=== PATIENT | male | born 1945 | race African-American/Black ===

== ENCOUNTER 2018-04-19 10:47 | Inpatient (IN) | payer OTHER ==
--- OUTSIDE RECORDS SUMMARY | 2018-04-19 10:49 | XMS REPORT | Clinical Summary ---
:1945 Author Organization [facility] Address [address] [place] [address] Care Team Providers Name Role Phone Evon Primary Care Provider Allergies No Known Allergies Medications Medication Sig Dispensed Refills Start Date End Date Status lisinopril Take 5 mg by 0 Active (PRINIVIL,ZESTRIL) 5 MG mouth nightly. tabletIndications: hypertension QUEtiapine (SEROQUEL) 100 Take 100 mg by 0 Active MG tabletIndications: mouth nightly. PTSD ferrous gluconate Take 324 mg by 0 Active (FERGON) 324 MG mouth daily tabletIndications: Iron with breakfast. Deficiency Anemia atorvastatin (LIPITOR) 20 Take 20 mg by 0 Active MG tabletIndications: mouth nightly. hyperlipidemia dorzolamide-timolol Place 1 drop 0 Active (COSOPT) 22.3-6.8 mg/mL into the left ophthalmic eye 2 (two) solutionIndications: open times daily. angle glaucoma latanoprost (XALATAN) 1 drop nightly. 0 Active 0.005 % ophthalmic solutionIndications: open angle glaucoma allopurinol (ZYLOPRIM) Take 100 mg by 0 Active 100 MG tabletIndications: mouth daily. Gout sertraline (ZOLOFT) 100 Take 100 mg by 0 Active MG tabletIndications: mouth daily. major depressive disorder Active Problems Problem Noted Date Cerebrovascular accident (CVA) 10/04/2016 Vitamin B12 deficiency 10/04/2016 Transient cerebral ischemia, unspecified type 10/04/2016 Social History Tobacco Use Types Packs/Day Years Used Date Former Smoker Cigarettes 0.15 50 10/19/1966 - 03/19/2016 Smokeless Tobacco: Never Used Tobacco Cessation: Counseling Given: No Alcohol Use Drinks/Week oz/Week Comments Yes 2 Cans of beer 1.2 Not every day Sex Assigned at Date Recorded Not on file Job Start Date Occupation Industry Not on file Not on file Not on file Travel History Travel Start Travel End No recent travel history available. Last Filed Vital Signs Not on file Plan of Treatment Not on file Results Not on fileafter 04/18/2017 Insurance Payer Benefit Plan / Subscriber ID Type Phone Address Group AETNA - AETNA MEDICARE xxxxxxxx [facility] Contracted [phone] [address] MEDICARE MGD HMO POS [id number] [place] [address] Advance Directives For more information, please contact:[address] [phone] Code Status Date Activated Date Inactivated Comments Full Code 10/03/2016 12:41 AM 10/05/2016 8:30 PM This code status was determined by: Patient
--- OUTSIDE RECORDS SUMMARY | 2018-04-19 10:49 | XMS REPORT ---
:1945 Author Organization [facility] Address [address] [place] [address] Care Team Providers Name Role Phone PALOMOCELINE Bonds Unavailable Unavailable Problems This patient has no known problems. Allergies, Adverse Reactions, Alerts This patient has no known allergies or adverse reactions. Medications This patient has no known medications. Results Test Description Test Time Test Comments Text Results Atomic Results Result Comments FERRITIN 2016-10-05 07:10:00 Test Item Value Reference Range Comments FERRITIN (BEAKER) (test kizo=192) 17 ng/mL 5-275 Effective 04/07/2014: Reference Range ChangeNew: Male 5-275 Previous: Male 22-322 Female 5-275 Female 10-291IRON, TIBC, % SAT. ( WITHOUT FERRITIN)2016-10-05 06:57:00 Test Item Value Reference Range Comments IRON (BEAKER) (test kfjk=820) 51 ug/dL 40-160 TOTAL IRON BINDING CAPACITY (BEAKER) (test 321 ug/dL 250-450 iwwy=510) IRON % SATURATION (2) (BEAKER) (test ykvu=9489) 16 % 20-55 CBC W/PLT COUNT & AUTO [id number] 07:29:00 Test Item Value Reference Range Comments WHITE BLOOD CELL COUNT (BEAKER) (test esye=201) 4.5 K/ L 4.0-10.0 RED BLOOD CELL COUNT (BEAKER) (test qxpc=610) 4.70 M/ L 4.20-5.80 HEMOGLOBIN (BEAKER) (test sfwb=641) 8.7 GM/DL 13.0-16.8 HEMATOCRIT (BEAKER) (test ujzf=777) 30.4 % 40.0-50.0 MEAN CORPUSCULAR VOLUME (BEAKER) (test mjom=067) 64.7 fL 82.0-98.0 MEAN CORPUSCULAR HEMOGLOBIN (BEAKER) (test 18.6 pg 27.0-33.0 uuns=483) MEAN CORPUSCULAR HEMOGLOBIN CONC (BEAKER) (test 28.7 GM/DL 32.0-36.0 jzbi=218) RED CELL DISTRIBUTION WIDTH (BEAKER) (test 20.7 % 10.3-14.2 sgzq=483) PLATELET COUNT (BEAKER) (test hxsz=309) 224 K/CU MM 150-430 MEAN PLATELET VOLUME (BEAKER) (test lyaa=817) 5.4 fL 6.5-10.5 NUCLEATED RED BLOOD CELLS (BEAKER) (test 0 /100 WBC 0-0 tete=130) NEUTROPHILS RELATIVE PERCENT (BEAKER) (test 50 % nyhw=223) LYMPHOCYTES RELATIVE PERCENT (BEAKER) (test 36 % vphe=072) MONOCYTES RELATIVE PERCENT (BEAKER) (test 10 % hguf=000) EOSINOPHILS RELATIVE PERCENT (BEAKER) (test 4 % wzwz=555) BASOPHILS RELATIVE PERCENT (BEAKER) (test 1 % kyta=472) NEUTROPHILS ABSOLUTE COUNT (BEAKER) (test 2.26 K/ L 1.80-8.00 ijfz=636) LYMPHOCYTES ABSOLUTE COUNT (BEAKER) (test 1.62 K/ L 1.48-4.50 ddab=284) MONOCYTES ABSOLUTE COUNT (BEAKER) (test 0.44 K/ L 0.00-1.30 fnvc=169) EOSINOPHILS ABSOLUTE COUNT (BEAKER) (test 0.17 K/ L 0.00-0.50 gpcf=354) BASOPHILS ABSOLUTE COUNT (BEAKER) (test 0.05 K/ L 0.00-0.20 oqey=854) 0.00[facility] METABOLIC [id number] 06:45:00 Test Item Value Reference Range Comments SODIUM (BEAKER) (test 139 meq/L 136-145 mezt=068) POTASSIUM (BEAKER) (test 3.9 meq/L 3.5-5.1 lcsn=697) CHLORIDE (BEAKER) (test 112 meq/L 98-107 hwep=774) CO2 (BEAKER) (test 20 meq/L 22-29 wpfm=560) BLOOD UREA NITROGEN 19 mg/dL 7-21 (BEAKER) (test olzf=034) CREATININE (BEAKER) (test 1.17 mg/dL 0.57-1.25 rytq=615) GLUCOSE RANDOM (BEAKER) 88 mg/dL 70-105 (test wean=445) CALCIUM (BEAKER) (test 8.7 mg/dL 8.4-10.2 miex=109) EGFR (BEAKER) (test 75 mL/min/1.73 sq m ESTIMATED GFR IS NOT mhhm=8753) ACCURATE CREATININE CLEARANCE IN PREDICTING GLOMERULAR FILTRATION RATE. ESTIMATED GFR IS NOT APPLICABLE FOR DIALYSIS PATIENTS. [id number] 13:05:00 Test Item Value Reference Range Comments RPR SCREEN (BEAKER) (test mred=082) Nonreactive Nonreactive HEMOGLOBIN [id number] 08:09:00 Test Item Value Reference Range Comments HEMOGLOBIN A1C (BEAKER) (test xmrj=347) 5.6 % 4.3-6.1 FastingSEDIMENTATION [id number] 06:42:00 Test Item Value Reference Range Comments SEDIMENTATION RATE, ERYTHROCYTE (BEAKER) (test 19 mm/HR 0-40 yywr=532) FOLATE, [id number] 04:58:00 Test Item Value Reference Range Comments FOLATE (BEAKER) (test inal=060) 12.3 ng/mL >=7.0 Effective 04/07/2014: Folate Reference Range ChangeNew: >=7.0 Previous: & gt;=5.4VITAMIN [id number] 03:55:00 Test Item Value Reference Range Comments VITAMIN B12 (BEAKER) (test pjqr=255) 250 pg/mL 213-816 TSH/FREE T4 IF [id number] 03:55:00 Test Item Value Reference Range Comments THYROID STIMULATING HORMONE (BEAKER) (test 1.42 uIU/mL 0.35-4.94 rysx=827) LIPID [id number] 03:32:00 Test Item Value Reference Range Comments TRIGLYCERIDES (BEAKER) (test jimg=510) 73 mg/dL CHOLESTEROL (BEAKER) (test ejci=386) 197 mg/dL HDL CHOLESTEROL (BEAKER) (test xror=259) 40 mg/dL LDL CHOLESTEROL CALCULATED (BEAKER) (test 142 mg/dL gzef=292) Triglyceride Reference Range: Low Risk <150 Borderline 150- 199 High Risk 200-499 Very High Risk >=500Cholesterol Reference Range: Low Risk <200 Borderline 200-239 High Risk > 240HDL Cholesterol Reference Range: Low Risk >=60 High Risk <40LDL Cholesterol Reference Range: Optimal <100 Near Optimal 100-129 Borderline 130-159 High 160-189 Very High >=190 FastingBASIC METABOLIC [id number] 03:32:00 Test Item Value Reference Range Comments SODIUM (BEAKER) (test 139 meq/L 136-145 qrby=640) POTASSIUM (BEAKER) (test 4.2 meq/L 3.5-5.1 dnxg=027) CHLORIDE (BEAKER) (test 113 meq/L 98-107 oica=427) CO2 (BEAKER) (test 18 meq/L 22-29 idqo=346) BLOOD UREA NITROGEN 18 mg/dL 7-21 (BEAKER) (test trdf=352) CREATININE (BEAKER) (test 1.15 mg/dL 0.57-1.25 eiio=063) GLUCOSE RANDOM (BEAKER) 96 mg/dL 70-105 (test fupq=945) CALCIUM (BEAKER) (test 8.9 mg/dL 8.4-10.2 rkwa=530) EGFR (BEAKER) (test 76 mL/min/1.73 sq m ESTIMATED GFR IS NOT pldo=6800) ACCURATE CREATININE CLEARANCE IN PREDICTING GLOMERULAR FILTRATION RATE. ESTIMATED GFR IS NOT APPLICABLE FOR DIALYSIS PATIENTS. FastingCBC W/PLT COUNT & AUTO [id number] 03:19:00 Test Item Value Reference Range Comments WHITE BLOOD CELL COUNT (BEAKER) (test uepn=840) 4.9 K/ L 4.0-10.0 RED BLOOD CELL COUNT (BEAKER) (test enbd=854) 4.69 M/ L 4.20-5.80 HEMOGLOBIN (BEAKER) (test kixz=039) 8.9 GM/DL 13.0-16.8 HEMATOCRIT (BEAKER) (test miur=555) 30.4 % 40.0-50.0 MEAN CORPUSCULAR VOLUME (BEAKER) (test ampv=624) 64.9 fL 82.0-98.0 MEAN CORPUSCULAR HEMOGLOBIN (BEAKER) (test 19.0 pg 27.0-33.0 baqn=284) MEAN CORPUSCULAR HEMOGLOBIN CONC (BEAKER) (test 29.3 GM/DL 32.0-36.0 upet=762) RED CELL DISTRIBUTION WIDTH (BEAKER) (test 20.5 % 10.3-14.2 gaas=372) PLATELET COUNT (BEAKER) (test otcl=080) 223 K/CU MM 150-430 MEAN PLATELET VOLUME (BEAKER) (test pant=485) 5.5 fL 6.5-10.5 NUCLEATED RED BLOOD CELLS (BEAKER) (test 0 /100 WBC 0-0 johx=912) NEUTROPHILS RELATIVE PERCENT (BEAKER) (test 45 % rwmo=695) LYMPHOCYTES RELATIVE PERCENT (BEAKER) (test 41 % jhnc=869) MONOCYTES RELATIVE PERCENT (BEAKER) (test 11 % yyro=880) EOSINOPHILS RELATIVE PERCENT (BEAKER) (test 3 % fcqh=294) BASOPHILS RELATIVE PERCENT (BEAKER) (test 1 % dngb=259) NEUTROPHILS ABSOLUTE COUNT (BEAKER) (test 2.20 K/ L 1.80-8.00 ooqr=913) LYMPHOCYTES ABSOLUTE COUNT (BEAKER) (test 2.01 K/ L 1.48-4.50 kwxf=608) MONOCYTES ABSOLUTE COUNT (BEAKER) (test 0.54 K/ L 0.00-1.30 bjmq=054) EOSINOPHILS ABSOLUTE COUNT (BEAKER) (test 0.16 K/ L 0.00-0.50 eypi=931) BASOPHILS ABSOLUTE COUNT (BEAKER) (test 0.05 K/ L 0.00-0.20 afyi=000) 0.00
[2018-04-19] MEDS ORDERED: NA CHLORIDE 0.9% 500 ML ONE ×2 (11:24→14:59)
[2018-04-19 11:42] LABS: Absolute Lymphocytes (CBC) 1.9 K/uL (0.7-4.9); Absolute Monocytes 0.5 K/uL (0.1-1.3); Basophils % 0.9 % (0-1.3); Eosinophils % 2.9 % (0-4.4); Hematocrit 41.2 % (39.6-49.0); Lymphocytes % 28.1 % (15.3-44.8); MCH 23.6 pg (27.0-35.0); MCV 73.4 fL (80-100); MPV 10.1 fL (7.6-11.3); RBC Red Blood Cell Count 5.62 M/uL (4.33-5.43)
[2018-04-19 12:28] LABS: Protime INR 1.13
[2018-04-19 13:53] LABS: AST/SGOT 18 U/L (15-37); BUN Blood Urea Nitrogen 88 mg/dL (7-18); Bicarbonate 13 mmol/L (21-32); Glucose Level 91 mg/dL (74-106); Sodium Level 135 mmol/L (136-145)
[2018-04-19 13:54] LABS: ALT/SGPT 35 U/L (12-78); Albumin 4.1 g/dL (3.4-5.0); Alkaline Phosphatase 222 U/L (45-117); Bilirubin Direct 0.2 mg/dL (0-0.2); Bilirubin Total 0.4 mg/dL (0.2-1.0); Protein, Total 8.3 g/dL (6.4-8.2)
--- NOTE | 2018-04-19 13:54 | RAD REPORT ---
EXAM DESCRIPTION: Norma Single View04/19/2018 1:43 pm CLINICAL HISTORY: Chest pain COMPARISON: 2017 FINDINGS: The lungs appear clear of acute infiltrate. Calcified granulomas are present within the l ungs. Lungs are hyperaerated. The heart is normal size IMPRESSION: Hyperaerated lungs probably indicate COPD. No acute abnormality is displayed
[2018-04-19 14:03] LABS: Magnesium 2.1 mg/dL (1.8-2.4); NT PRO-BNP 132 pg/mL (<125); Troponin (Emerg Dept Use Only) < 0.20 ng/mL (0.0-0.045)
[2018-04-19 14:04] LABS: Potassium 6.5 mmol/L (3.5-5.1)
--- NOTE | 2018-04-19 14:14 | EKG ---
Test Date: 2018-04-19 Test Time: 10:52:49 Kitchen Clerk: KALE MEASUREMENT RESULTS: Intervals: Rate: 54 ID: [id number] QRSD: 92 QT: 408 QTc: 386 [place]: P: 24 ID: [id number] QRS: -29 T: 62 INTERPRETIVE STATEMENTS: Sinus bradycardia Otherwise normal ECG Compared to ECG 10/02/2016 18:40:35 Incomplete right bundle-branch block no longer present Left ventricular hypertrophy no longer present ST (T wave) deviation no longer present Electronically Signed On 04-19-18 14:13:35 TIGHTENING MACHINE OPERATOR by Enmanuel Heredia
[2018-04-19] MEDS ORDERED: INSULIN -REGULAR HUMAN 50 UNIT/0.5 ML ML ONE (14:58)
[2018-04-19] MEDS ORDERED: SOD BICARB 8.4% PEDI 10 mEq/10 mL SYR IVP ONE (14:58)
[2018-04-19] MEDS ORDERED: SOD POLYSTYREN SUL 15 GM/60 ML UCUP ONE (14:58)
[2018-04-19] MEDS ORDERED: ALBUTEROL 2.5 MG/3 ML NEB SOL ONE (14:58)
[2018-04-19] MEDS ORDERED: D50W 25 GM/50 ML SYRINGE IV ONE ×2 (14:58→16:39)
--- NOTE | 2018-04-19 14:58 | ER ---
Nurse's Notes [facility] Name: Barrie De Luna Age: 72 yrs Sex: Male : 1945 Arrival Date: 04/19/2018 Time: 11:04 Bed 4 Private MD: Diagnosis: Hypotension;Hyperkalemia;Syncope and collapse-near Presentation: 04/19 10:48 Presenting complaint: EMS [facility] and his SBP sv was 58. On EMS arrival SBP 62, placed in Trendelenburg and SBP 99. Denies CP, BS-58, multiple IV sticks attempted. Transition of care: patient was not received from another setting of care. Onset of symptoms was April 19, 2018. Risk Assessment: Do you want to hurt yourself or someone else? Patient reports no desire to harm self or others. Initial Sepsis Screen: Does the patient meet any 2 criteria? No. Patient's initial sepsis screen is negative. Does the patient have a suspected source of infection? No. Patient's initial sepsis screen is negative. Care prior to arrival: None. 10:48 Method Of Arrival: EMS: [facility] sv 10:48 Acuity: KOL[place] 2 sv Triage Assessment: 10:48 General: Appears in no apparent distress. uncomfortable, Behavior is calm, cooperative, sv appropriate for age. Pain: Denies pain. EENT: No signs and/or symptoms were reported regarding the EENT system. Neuro: Level of Consciousness is awake, alert, obeys commands, Oriented to person, place, time, situation, Moves all extremities. Full function Speech is normal. Neuro: Reports weakness. Respiratory: Respiratory effort is even, unlabored, Respiratory pattern is regular, symmetrical. Derm: Skin is pale. Historical: - Allergies: 11:24 NKA; sv - PMHx: 11:24 Glaucoma; Hypertension; Borderline DM; sv 11:33 Anemia; sv - PSHx: 11:24 right knee; sv 11:33 colectomy; sv - Immunization history:: Adult Immunizations up to date. - Social history:: Smoking status: Patient/guardian denies using tobacco. - Ebola Screening: : No symptoms or risks identified at this time. Screenin:26 Abuse screen: Denies threats or abuse. Denies injuries from another. Nutritional sv screening: No deficits noted. Tuberculosis screening: No symptoms or risk factors identified. Fall Risk None identified. Assessment: 13:24 Reassessment: Patient appears in no apparent distress at this time. No changes from sv previously documented assessment. Patient and/or family updated on plan of care and expected duration. Pain level reassessed. Patient is alert, oriented x 3, equal unlabored respirations, skin warm/dry/pink. 14:15 Reassessment: Patient appears in no apparent distress at this time. No changes from hb previously documented assessment. Patient and/or family updated on plan of care and expected duration. Pain level reassessed. 14:37 Reassessment: Patient appears in no apparent distress at this time. No changes from sv previously documented assessment. Patient and/or family updated on plan of care and expected duration. Pain level reassessed. Patient is alert, oriented x 3, equal unlabored respirations, skin warm/dry/pink. 15:00 Reassessment: Dr Garcia at bedside. sv 15:29 Reassessment: Patient appears in no apparent distress at this time. No changes from sv previously documented assessment. Patient and/or family updated on plan of care and expected duration. Pain level reassessed. Patient is alert, oriented x 3, equal unlabored respirations, skin warm/dry/pink. 17:30 Reassessment: Patient appears in no apparent distress at this time. No changes from hb previously documented assessment. Patient and/or family updated on plan of care and expected duration. Pain level reassessed. Patient is alert, oriented x 3, equal unlabored respirations, skin warm/dry/pink. 18:30 Reassessment: Patient appears in no apparent distress at this time. No changes from hb previously documented assessment. Patient and/or family updated on plan of care and expected duration. Pain level reassessed. Patient is alert, oriented x 3, equal unlabored respirations, skin warm/dry/pink. 19:05 Reassessment: Patient appears in no apparent distress at this time. No changes from sv previously documented assessment. Patient and/or family updated on plan of care and expected duration. Pain level reassessed. Patient is alert, oriented x 3, equal unlabored respirations, skin warm/dry/pink. 20:31 Reassessment: pt having BM now. pt A\T\OX4. resp even and unlabored. will wait for update [facility]. Vital Signs: 10:46 BP 109 / 60; Pulse 52; Resp 17; Pulse Ox 98% ; sv 11:09 BP 119 / 69; Pulse 52; Resp 17; Temp 97.4(A); Pulse Ox 99% ; sv 11:35 BP 106 / 56; Pulse 52 MON; Resp 15; Pulse Ox 98% ; sv 12:04 BP 118 / 56; Pulse 52; Resp 15; Pulse Ox 99% ; sv 12:43 BP 91 / 52; Pulse 52; Resp 16; Pulse Ox 100% ; sv 13:24 BP 101 / 60; Pulse 51; Resp 14; Pulse Ox 100% ; sv 14:04 BP 92 / 43; Pulse 51; Resp 13; Pulse Ox 100% on R/A; sv 14:36 BP 71 / 43; Pulse 50; Resp 14; Pulse Ox 100% on R/A; sv 15:01 BP 110 / 58; Pulse 52; Resp 18; Pulse Ox 100% on R/A; sv 15:29 BP 114 / 40; Pulse 55; Resp 16; Pulse Ox 100% ; sv 16:03 BP 129 / 55; Pulse 59; Resp 15; Pulse Ox 99% ; sv 16:43 BP 90 / 48; Pulse 56; Resp 14; Pulse Ox 100% on R/A; sv 17:46 BP 90 / 51; Pulse 56; Resp 15; Pulse Ox 99% ; sv 18:06 BP 100 / 58; Pulse 57; Resp 15; Pulse Ox 99% on R/A; sv 20:30 BP 93 / 62; Pulse 63; Resp 15; Temp 97.6; Pulse Ox 99% on R/A; ak1 11:35 Sinus bradycardia sv ED Course: 10:55 Missed attempt(s): 20 gauge in right antecubital area. done by Mita VILLALTA. Bleeding sv controlled, band aid applied, catheter tip intact. 11:00 Missed attempt(s): 22 gauge in left forearm. x2. Bleeding controlled, band aid applied, sv catheter tip intact. 11:00 Patient has correct armband on for positive identification. Bed in low position. Call sv light in reach. Side rails up X2. Adult w/ patient. sales financial analyst on. Pulse ox on. NIBP on. Door closed. Warm blanket given. Head of bed elevated. 11:04 Patient arrived in ED. em1 11:04 Teofilo Maldonado MD is Attending Physician. kdr 11:15 Initial lab(s) drawn, by oh, sent to lab. Inserted saline lock: 22 gauge in left hand, sv using aseptic technique. Blood collected. Flushed left hand with 5 ml normal saline. 11:19 Mansi Ridley RN is Primary Nurse. sv 11:23 Triage completed. sv 11:28 Arm band placed on. sv 13:25 XRAY Chest (1 view) Sent. sv 13:28 X-ray(s) taken. sv 14:56 Lai Garcia DO is Hospitalizing Provider. kdr 15:[address] via stretcher. sv 15:16 Patient moved back from CT. sv 17:55 Notified ED physician of other Extended wait times for [place] [id number] transfer center. Original set of clinical information was faxed per DC instruction at 1545 with no response. Second set of clinical information was faxed at 1700 with no response. At 1747 [facility] from [facility] trans[facility] operator after 4 minutes of hold time. 17:58 CT Head Brain wo Cont Sent. sv 18:04 Awaiting bed assignment. sv 18:25 Inserted saline lock: 22 gauge in left antecubital area, using aseptic technique. sv ,using aseptic technique. diffusics Blood collected. 18:58 Primary Nurse role handed off by Manis Ridley RN sv 19:14 Report given to Lilia VILLALTA and Teena VILLALTA. sv 21:03 Attending Physician role handed off by Teofilo Maldonado MD gs 21:03 Sergio Hicks MD is Attending Physician. gs 21:45 Teena Ortiz RN is Primary Nurse. ak1 21:46 No provider procedures requiring assistance completed. Patient admitted, IV remains in ak1 place. Administered Medications: 11:19 Drug: NS 0.9% 500 ml Route: IV; Rate: bolus; Site: left hand; sv 12:00 Follow up: Response: No adverse reaction; IV Status: Completed infusion; IV Intake: sv 500ml 15:00 Drug: NS 0.9% 500 ml Route: IV; Rate: bolus; Site: left hand; sv 15:40 Follow up: Response: No adverse reaction; IV Status: Completed infusion; IV Intake: sv 500ml 15:01 Drug: Insulin Regular Human 10 units {Co-Signature: hb (Mita Gonzalez RN).} Route: sv IVP; Site: left hand; 15:33 Follow up: Response: No adverse reaction sv 15:01 Drug: D50W 50 ml Route: IVP; Site: left hand; sv 15:32 Follow up: Response: No adverse reaction sv 15:03 Drug: Sodium Bicarbonate 1 amp Route: IVP; Site: left hand; sv 15:32 Follow up: Response: No adverse reaction sv 15:28 Drug: Calcium Gluconate 1 grams Route: IVPB; Infused Over: 60 mins; Site: left hand; sv 16:30 Follow up: Response: No adverse reaction; IV Status: Completed infusion; IV Intake: sv 100ml 15:28 Drug: Albuterol 2.5 mg Route: Inhalation; sv 15:28 Drug: Albuterol 2.5 mg Route: Inhalation; sv 15:28 Drug: Albuterol 2.5 mg Route: Inhalation; sv 15:28 Drug: Kayexalate 30 grams Route: PO; sv 15:33 Follow up: Response: No adverse reaction sv 16:43 Drug: D50W 50 ml Route: IVP; Site: left hand; sv 17:00 Follow up: Response: No adverse reaction sv Point of Care Testing: Blood Glucose: 11:00 Blood Glucose: 100 mg/dL; sv 16:27 Blood Glucose: 56 mg/dL; mh5 16:56 Blood Glucose: 154 mg/dL; sv Ranges: Intake: 12:00 IV: 500ml; Total: 500ml. sv 15:40 IV: 500ml; Total: 1000ml. sv 16:30 IV: 100ml; Total: 1100ml. sv Outcome: 14:57 Decision to Hospitalize by Provider. kdr 21:47 Admitted to ICU accompanied by nurse, accompanied by tech, via stretcher, room 1, on ak1 monitor, with chart, Report called to Ester 21:47 Condition: stable 21:47 Instructed on the need for admit. 22:06 Patient left the ED. ak1 Signatures: Mansi Ridley RN RN sv Rittger, Kevin, MD MD kdr Martinez, Eric [facility] Teena Ortiz RN RN ak1 Baxter, Heather, RN RN Gretchen [facility] Sergio Hicks MD MD Mita rodriguez
--- NOTE | 2018-04-19 14:58 | EDPHYS ---
Physician Documentation [facility] Name: Barrie De Luna Age: 72 yrs Sex: Male : 1945 Arrival Date: 04/19/2018 Time: 11:04 Bed 4 Private MD: ED Physician Historical: - Allergies: 04/19 11:24 NKA; sv - PMHx: 11:24 Glaucoma; Hypertension; Borderline DM; sv 11:33 Anemia; sv - PSHx: 11:24 right knee; sv 11:33 colectomy; sv - Immunization history:: Adult Immunizations up to date. - Social history:: Smoking status: Patient/guardian denies using tobacco. - Ebola Screening: : No symptoms or risks identified at this time. Vital Signs: 10:46 BP 109 / 60; Pulse 52; Resp 17; Pulse Ox 98% ; sv 11:09 BP 119 / 69; Pulse 52; Resp 17; Temp 97.4(A); Pulse Ox 99% ; sv 11:35 BP 106 / 56; Pulse 52 MON; Resp 15; Pulse Ox 98% ; sv 12:04 BP 118 / 56; Pulse 52; Resp 15; Pulse Ox 99% ; sv 12:43 BP 91 / 52; Pulse 52; Resp 16; Pulse Ox 100% ; sv 13:24 BP 101 / 60; Pulse 51; Resp 14; Pulse Ox 100% ; sv 14:04 BP 92 / 43; Pulse 51; Resp 13; Pulse Ox 100% on R/A; sv 14:36 BP 71 / 43; Pulse 50; Resp 14; Pulse Ox 100% on R/A; sv 15:01 BP 110 / 58; Pulse 52; Resp 18; Pulse Ox 100% on R/A; sv 15:29 BP 114 / 40; Pulse 55; Resp 16; Pulse Ox 100% ; sv 16:03 BP 129 / 55; Pulse 59; Resp 15; Pulse Ox 99% ; sv 16:43 BP 90 / 48; Pulse 56; Resp 14; Pulse Ox 100% on R/A; sv 17:46 BP 90 / 51; Pulse 56; Resp 15; Pulse Ox 99% ; sv 18:06 BP 100 / 58; Pulse 57; Resp 15; Pulse Ox 99% on R/A; sv 20:30 BP 93 / 62; Pulse 63; Resp 15; Temp 97.6; Pulse Ox 99% on R/A; ak1 11:35 Sinus bradycardia sv MDM: 14:57 Patient medically screened. [facility] 04/19 11:08 Order name: Glucose, Ancillary Testing; Complete Time: 14:51 EDWA 04/19 11:13 Order name: Basic Metabolic Panel; Complete Time: 14:51 [facility] 04/19 11:13 Order name: CBC with Diff; Complete Time: 14:51 [facility] 04/19 11:13 Order name: LFT's; Complete Time: 14:51 [facility] 04/19 11:13 Order name: Magnesium; Complete Time: 14:51 [facility] 04/19 11:13 Order name: NT PRO-BNP; Complete Time: 14:51 [facility] 04/19 11:13 Order name: PT-INR; Complete Time: 14:51 [facility] 04/19 11:13 Order name: Troponin (emerg Dept Use Only); Complete Time: 14:51 [facility] 04/19 19:19 Order name: Potassium 04/19 20:03 Order name: Potassium; Complete Time: 21:04 EDWA 04/19 20:03 Order name: T4 Free; Complete Time: 21:04 EDWA 04/19 20:03 Order name: Thyroid Stimulating Hormone; Complete Time: 21:04 EDWA 04/19 20:27 Order name: Potassium; Complete Time: 21:04 EDWA 04/19 20:29 Order name: Miscellaneous Test Lab [facility] 04/19 11:13 Order name: XRAY Chest (1 view) [facility] 04/19 11:13 Order name: EKG; Complete Time: 11:14 [facility] 04/19 11:13 Order name: Cardiac monitoring; Complete Time: 11:22 [facility] 04/19 13:55 Order name: RAD; Complete Time: 14:51 EDWA 04/19 14:55 Order name: CT Head Brain wo Cont [facility] 04/19 15:45 Order name: CT; Complete Time: 19:16 EDWA 04/19 21:52 Order name: Glucose, Ancillary Testing [facility] 04/19 11:13 Order name: EKG - Nurse/Tech; Complete Time: 11:22 [facility] 04/19 11:13 Order name: IV Saline Lock; Complete Time: 11:22 [facility] 04/19 11:13 Order name: Labs collected and sent; Complete Time: 11: [facility] 04/19 11:13 Order name: O2 Per Protocol; Complete Time: 11: [facility] 04/19 11:13 Order name: O2 Sat Monitoring; Complete Time: 11:23 kdr Administered Medications: 11:19 Drug: NS 0.9% 500 ml Route: IV; Rate: bolus; Site: left hand; sv 12:00 Follow up: Response: No adverse reaction; IV Status: Completed infusion; IV Intake: sv 500ml 15:00 Drug: NS 0.9% 500 ml Route: IV; Rate: bolus; Site: left hand; sv 15:40 Follow up: Response: No adverse reaction; IV Status: Completed infusion; IV Intake: sv 500ml 15:01 Drug: Insulin Regular Human 10 units {Co-Signature: hb (Mita Gonzalez RN).} Route: sv IVP; Site: left hand; 15:33 Follow up: Response: No adverse reaction sv 15:01 Drug: D50W 50 ml Route: IVP; Site: left hand; sv 15:32 Follow up: Response: No adverse reaction sv 15:03 Drug: Sodium Bicarbonate 1 amp Route: IVP; Site: left hand; sv 15:32 Follow up: Response: No adverse reaction sv 15:28 Drug: Calcium Gluconate 1 grams Route: IVPB; Infused Over: 60 mins; Site: left hand; sv 16:30 Follow up: Response: No adverse reaction; IV Status: Completed infusion; IV Intake: sv 100ml 15:28 Drug: Albuterol 2.5 mg Route: Inhalation; sv 15:28 Drug: Albuterol 2.5 mg Route: Inhalation; sv 15:28 Drug: Albuterol 2.5 mg Route: Inhalation; sv 15:28 Drug: Kayexalate 30 grams Route: PO; sv 15:33 Follow up: Response: No adverse reaction sv 16:43 Drug: D50W 50 ml Route: IVP; Site: left hand; sv 17:00 Follow up: Response: No adverse reaction sv Point of Care Testing: Blood Glucose: 11:00 Blood Glucose: 100 mg/dL; sv 16:27 Blood Glucose: 56 mg/dL; mh5 16:56 Blood Glucose: 154 mg/dL; sv Ranges: Critical Glucose Levels:Adult <50 mg/dl or >400 mg/dl <40 mg/dl or >180 mg/dl Disposition: 04/19/18 14:57 Hospitalization ordered by Lai Garcia for Inpatient Admission. Preliminary diagnosis are Hypotension, Hyperkalemia, Syncope and collapse - near. - Bed requested for Intensive Care Unit. - Status is Inpatient Admission. ak1 - Condition is Fair. - Problem is new. - Symptoms have improved. UTI on Admission? No Addendum: 04/26/2018 06:10 Addendum: CC: Weakness and hypotension HPI: [facility] since he wasnt feeling well. Upon arrival, he became weak and EMS was called. [facility] was reported to [facility] 58, EMS reported 62. By the time of his arrival to the ED, his initial pressure had improved and he was alert and oriented to baseline. He remained at baseline during the initial exam. He was generally too weak to get out of bed but was mentally intact. . Addendum: ROS: Const: No fever, chills or weight loss. He was globally weak Eyes: no visual changes or c/o, Neck: no pain or injury, CV: no CP or palpitations, Resp: no SOB, cough or congestion, Abd: no n/v/d or pain, Back: no pain or injury, : no pain or bleeding, MS/Ext: no pain, injury, swelling, tingling, Skin: no lacerations, pain, injury, skin turgor good, Neuro: CN grossly intact and no other deficits, Psych: Appropriate for age, Allergy/Immunology: no rashes or other s/s, Endo: no evidence of polyuria, polydipsia, temperature control or other s/s . Addendum: Exam: Const: WDWN BM in NAD, Head/Face: no injury, pain or deformity, Eyes: PERRLA, ENT: no pain, injury or bleeding, Neck: no pain, injury or deformity, full ROM, Chest/Axilla: No pain, injury or deformity, CV: no rubs, gallops, murmurs, regular rate, Resp: CTAB, regular rate, Abd/GI: soft, NT, BS present in all quads and normal, Back: no injury or deformity, full ROM, MS/Extremity: no injury or deformity, FROM, distal pulses good and equal, Skin: no rashes, ecchymosis skin turgor good, Neuro: CN grossly intact, no other neuro deficits, too weak to stand at this time Psych: appropriate for age, no SI/HI, no depression . Addendum: MDM (Admission - stable) All VS and nursing notes reviewed. The patient had occasional episodes of hypotension but did not seem to be symptomatic while lying in bed. Made multiple attempts to trasmfoer to CA but they were not responsive. The patient and/or family was counseled on the results and need for admission. The patient was admitted in stable condition. They were happy with the care received and the plan for admission and further evaluation and treatment. . Signatures: Dispatcher [employer] EDMansi Santiago RN AMBAR Teofilo Maldonado MD MD [facility] Teena Ortiz RN RN ak1 Mita Gonzalez RN RN Sergio Hicks MD MD [place] Mita Gonzalez RN Corrections: (The following items were deleted from the chart) 04/19 18:50 14:57 Hospitalization Ordered by Lai Lumafitrosalinda JHAVERI for Inpatient Admission. Preliminary [facility] diagnosis is Hypotension; Hyperkalemia; Syncope and collapse - near. Bed requested for Telemetry/MedSurg (Inpatient). Status is Inpatient Admission. Condition is Fair. Problem is new. Symptoms have improved. UTI on Admission? No. kdr 19:12 18:50 04/19/2018 14:57 Hospitalization Ordered by Lai Lumafitrosalinda JHAVERI for Inpatient mw2 Admission. Preliminary diagnosis is Hypotension; Hyperkalemia; Syncope and collapse - near. Bed requested for Intensive Care Unit. Status is Inpatient Admission. Condition is Fair. Problem is new. Symptoms have improved. UTI on Admission? No. kdr 22:06 19:12 04/19/2018 14:57 Hospitalization Ordered by LaiCampanistorosalinda JHAVERI for Inpatient ak1 Admission. Preliminary diagnosis is Hypotension; Hyperkalemia; Syncope and collapse - near. Bed requested for Intensive Care Unit. Status is Inpatient Admission. Condition is Fair. Problem is new. Symptoms have improved. UTI on Admission? No. mw2
[2018-04-19] MEDS ORDERED: CALCIUM GLUCONATE 1gm/100 ML NS (4.65 mEq/100mL) IV ONE ×2 (15:00)
--- NOTE | 2018-04-19 15:34 | RAD REPORT ---
EXAM DESCRIPTION: CT - Head Brain Wo Cont - 04/19/2018 3:12 pm CLINICAL HISTORY: near syncope Drowsiness COMPARISON: Ct Stroke Brain Wo Cont dated 10/02/2016 TECHNIQUE: All CT scans are performed using dose optimization technique as appropriate and may inclu de automated exposure control or mA/KV adjustment according to patient size. FINDINGS: No intracranial hemorrhage, hydrocephalus or extra-axial fluid collection.Moderate general ized brain atrophy is present with moderate periventricular and deep white matter chronic microvascul ar ischemic changes.No areas of brain edema or evidence of midline shift. The paranasal sinuses and mastoids are clear. The calvarium is intact. IMPRESSION: No acute intracranial abnormality. If there is continued clinical concern for CVA, MR i maging of the brain would be recommended.
[2018-04-19] MEDS ORDERED: ACETAMINOPHEN 500 MG TAB PO PRN (18:08)
[2018-04-19] MEDS ORDERED: ALBUTEROL 2.5 MG/3 ML NEB SOL NEB PRN (18:08)
[2018-04-19] MEDS ORDERED: IPRATROPIUM BROM 0.5MG/2.5ML NEB PRN (18:08)
[2018-04-19] MEDS ORDERED: NA CHLORIDE 0.9% 1,000 ML IV SCH ×2 (19:00→21:53)
[2018-04-19] MEDS: ARFORMOTEROL TARTRATE 15 MCG/2 ML VIAL.NEB NEB SCH (20:00)
[2018-04-19 20:01] LABS: Potassium 5.4 mmol/L (3.5-5.1); Thyroid Stimulating Hormone 0.322 uIU/mL (0.360-3.740)
[2018-04-19] MEDS: INSULIN -REGULAR HUMAN 50 UNIT/0.5 ML ML SQ SCH (21:00)
[2018-04-19 23:32] LABS: CKMB Creatine Kinase MB 1.3 ng/mL (0.3-3.6); Creatine Phosphokinase 58 U/L (39-308); Potassium 5.7 mmol/L (3.5-5.1); Troponin I < 0.02 ng/mL (0.0-0.045)
[2018-04-19] MEDS ORDERED: D5W 1,000 ML with NA BICARB 8.4% 100 MEQ IV SCH ×2 (23:45)
[2018-04-19] MEDS ORDERED: D5W 1,000 ML IV ONE (23:56)
[2018-04-20] MEDS ORDERED: SOD POLYSTYREN SUL 15 GM/60 ML UCUP PO ONE (00:50)
[2018-04-20] MEDS ORDERED: D5W 1,000 ML with NA BICARB 8.4% 150 MEQ IV SCH ×2 (01:00)
[2018-04-20] MEDS ORDERED: NA CHLORIDE 0.9% 250 ML ONE (02:07)
[2018-04-20] MEDS ORDERED: NA CHLORIDE 0.9% 250 ML IV ONE (02:21)
[2018-04-20] MEDS: ONDANSETRON 4 MG/2 ML VIAL IV PRN ×2 (03:17→05:30)
[2018-04-20 03:43] LABS: Urine Appearance CLOUDY; Urine Blood NEGATIVE (NEG); Urine Color YELLOW; Urine Glucose NEGATIVE (NEG); Urine Protein TRACE (NEG); Urine Urobilinogen 0.2 mg/dL (0.2-1.0)
[2018-04-20 03:44] LABS: Absolute Lymphocytes (CBC) 1.6 K/uL (0.7-4.9); Absolute Monocytes 0.5 K/uL (0.1-1.3); Absolute Neutrophil 3.1 K/uL (1.8-8.0); Basophils % 0.6 % (0-1.3); Eosinophils % 2.7 % (0-4.4); Hematocrit 37.6 % (39.6-49.0); Lymphocytes % 29.4 % (15.3-44.8); MCH 23.5 pg (27.0-35.0); MPV 9.8 fL (7.6-11.3); Monocytes % 8.9 % (3.3-12.3); RBC Red Blood Cell Count 5.15 M/uL (4.33-5.43)
[2018-04-20 03:49] LABS: CKMB Creatine Kinase MB 1.5 ng/mL (0.3-3.6); Creatine Phosphokinase 52 U/L (39-308); Troponin I < 0.02 ng/mL (0.0-0.045)
[2018-04-20 04:00] LABS: Urine Bilirubin NEGATIVE (NEG)
[2018-04-20 04:04] LABS: UR MICROALBUMIN 10.4 mg/dL (< 1.9)
[2018-04-20 04:16] LABS: Urine Bacteria 20-50 /HPF (NONE SEEN); Urine Culture Reflex Order REFLEXED; Urine RBC <5 /HPF (NONE SEEN)
[2018-04-20] MEDS ORDERED: NOREPINEPHRINE 4mg/D5W 250mL 4 MG/250 ML BAG IV ONE (04:16)
[2018-04-20] MEDS: NOREPINEPHRINE 4 MG in D5W 250 ML IV PRN ×2 (04:18→12:12)
[2018-04-20 04:19] LABS: Magnesium 2.1 mg/dL (1.8-2.4)
[2018-04-20 04:20] LABS: Potassium 5.8 mmol/L (3.5-5.1)
[2018-04-20] MEDS ORDERED: INSULIN -REGULAR HUMAN 50 UNIT/0.5 ML ML IV ONE (04:22)
[2018-04-20] MEDS ORDERED: D50W 25 GM/50 ML SYRINGE IV PRN (04:22)
[2018-04-20] MEDS ORDERED: CALCIUM GLUC 10% INJ 4.65 MEQ in NA CHLORIDE 0.9% 100 ML IV ONE (04:22)
[2018-04-20] MEDS ORDERED: D50W 25 GM/50 ML SYRINGE IV ONE (04:22)
[2018-04-20] MEDS ORDERED: GLUCAGON 1 MG/VIAL IM PRN (04:22)
[2018-04-20] MEDS ORDERED: Caclcium Chloride 10% INJ SYR IV ONE ×2 (05:08→05:15)
[2018-04-20] MEDS ORDERED: DOPAMINE/D5W 400 MG/250 ML BAG IV PRN (05:30)
[2018-04-20] MEDS ORDERED: ATROPINE SULFATE 1 MG/ML INJ ONE (05:39)
[2018-04-20] MEDS ORDERED: DOPAMINE/D5W 400 MG/250 ML BAG IV ONE (05:41)
[2018-04-20] MEDS ORDERED: SODIUM BICARB 50 MEQ/50ML VIAL ONE ×2 (06:16→06:19)
[2018-04-20] MEDS: ARFORMOTEROL TARTRATE 15 MCG/2 ML VIAL.NEB NEB SCH (07:26)
[2018-04-20] MEDS ORDERED: PANTOPRAZOLE 40MG TABLET PO SCH (07:30)
[2018-04-20] MEDS: INSULIN -REGULAR HUMAN 50 UNIT/0.5 ML ML SQ SCH ×3 (07:30→16:30)
[2018-04-20] MEDS ORDERED: ONDANSETRON 4 MG/2 ML VIAL IV PRN (08:22)
[2018-04-20] MEDS ORDERED: ASPIRIN EC 81 MG TAB PO SCH (09:00)
--- NOTE | 2018-04-20 09:16 | P.HP ---
Certification for Inpatient Patient admitted to: Inpatient With expected LOS: >2 Midnights Patient will require the following post-hospital care: None Practitioner: I am a practitioner with admitting privileges, knowledge of patient current condition, hospital course, and medical plan of care. Services: Services provided to patient in accordance with Admission requirements found in Title 42 Section 412.3 of the Code of Federal Regulations Patient History Date of Service: 04/20/18 Reason for admission: Metabolic acidosis; hyperkalemia; end-stage renal disease History of Present Illness: Patient is a 72-year-old gentleman who came into the hospital and was found to have end-stage renal disease. Patient has a history of hypertension and diabetes. Patient has been declining. He was scheduled to go to the ID for follow-up. However, while he was at home he became lightheaded. He came into the emergency room for further evaluation. In the ER he was found to have a systolic blood pressure of 50s. His workup in the ER revealed he had multiple electrolyte abnormalities. He was hyperkalemic and he has end-stage renal disease. He was having very little urine output (through the evening this completely stopped). He also has severe metabolic acidosis. Transfer to the [facility] was attempted. Potassium was corrected to 5.1. The [facility] called us back and they spoke with the ER physician, Dr. Hicks, and day informed him that there were at capacity. Patient was admitted to our hospital. I spoke to the nurses and they told me patient was hypotensive. I came to the ICU to see the patient. Patient was severely acidotic with an elevated potassium level. Central line was placed. Patient also appeared to have developed an ileus as he had numerous episodes of nausea and vomiting- approximately 12. We went ahead and placed an NG tube and had a KUB. Patient also required vasopressor support. Patient had become bradycardic and hypotensive so we used dopamine to support the heart rate and blood pressure. Nephrology was called. Spoke with General surgery and they would get a Santiago catheter placed once they arrived. Patient will need CVVHD/continuous venovenous hemodialysis. Have made arrangements to a possibly transfer to [facility] once patient is accepted. Allergies No Known Allergies Allergy (Unverified 10/02/16 22:15) - Past Medical/Surgical History Has patient received pneumonia vaccine in the past: No Diabetic: Yes -: glaucoma -: HTN -: anemia -: borderline DM -: COPD -: Right knee -: colectomy -: hernia repair - Family History Father History Unknown: Yes Mother History Unknown: Yes - Social History Smoking Status: Former smoker Alcohol use: No CD- Drugs: No Caffeine use: No Place of Residence: Home Review of Systems 10-point ROS is otherwise unremarkable Physical Examination - Vital Signs Temperature: 97.8 F Blood Pressure: 100/55 Pulse: 112 Respirations: 33 Pulse Ox (%): 99 - Physical Exam General: Alert, In no apparent distress, Oriented x3 HEENT: Atraumatic, PERRLA, Mucous membr. moist/pink, EOMI, Sclerae nonicteric Neck: Supple, 2+ carotid pulse no bruit, No LAD, Without JVD or thyroid abnormality Respiratory: Clear to auscultation bilaterally, Normal air movement Cardiovascular: Regular rate/rhythm, Normal S1 S2, No murmurs Gastrointestinal: Normal bowel sounds, Soft and benign, Non-distended, No tenderness, No rebound, No guarding Musculoskeletal: No clubbing, No swelling, No tenderness Integumentary: No rashes Neurological: Normal gait, Normal speech, Normal strength at 5/5 x4 extr, Normal tone, Sensation intact, Cranial nerves 3-12 intact, Normal affect Lymphatics: No axilla or inguinal lymphadenopathy - Studies Laboratory Data (last 24 hrs) 04/19/18 12:25: Sodium 135 L, Potassium 6.5 H*, BUN 88 H, Creatinine 8.21 H*, Glucose 91, Magnesium 2.1, Total Bilirubin 0.4, AST 18, ALT 35, Alkaline Phosphatase 222 H 04/19/18 12:05: PT 13.4 H, INR 1.13 04/19/18 11:18: WBC 6.7, Hgb 13.3 L, Hct 41.2, Plt Count 206 Assessment & Plan - Problems (Diagnosis) (1) ESRD (end stage renal disease) Current Visit: Yes Status: Acute (2) Hyperkalemia Current Visit: Yes Status: Acute (3) Metabolic acidosis Current Visit: Yes Status: Acute (4) Hypotension Current Visit: Yes Status: Acute - Plan Plan: 1. Bicarbonate drip 2. Monitor labs/potassium level and calcium as needed 3. Strict input and output 4. Repeat labs every 6 hr 5. General surgery consultation 6. Nephrology consultation 7. Central line placement 8. Abdominal films and NG tube secondary to ileus with persistent nausea and vomiting 9. GI and DVT prophylaxis Discharge Plan: Transfer - Advance Directives Does patient have a Living Will: Yes Does patient have a Durable POA for Healthcare: Yes - Code Status/Comfort Care Code Status Assessed: Yes Code Status: Full Code Critical Care: Yes Time Spent Managing PTS Care (In Minutes): 180
[2018-04-20] MEDS ORDERED: LIDOCAINE 1% MPF 5 ML VIAL ONE (09:32)
--- NOTE | 2018-04-20 09:44 | P.OP ---
Preoperative diagnosis: Acute Renal Failure Postoperative diagnosis: Acute Renal Failure Primary procedure: Placement of Temporary LEFT femoral vein hemodialysis catheter Secondary procedure: microintroducer used Anesthesia: local 1% lidocaine Estimated blood loss: <5cc Specimen: none Findings: dark, non-pulsatile blood returned Complications: None Implants: Temporary hemodialysis catheter Transferred to: ICU Condition: Serious
[2018-04-20 10:18] LABS: Absolute Monocytes 0.3 K/uL (0.1-1.3); Absolute Neutrophil 6.8 K/uL (1.8-8.0); Basophils % 0.5 % (0-1.3); Eosinophils % 0.1 % (0-4.4); Hematocrit 38.7 % (39.6-49.0); Lymphocytes % 12.1 % (15.3-44.8); MCH 23.6 pg (27.0-35.0); MCV 72.7 fL (80-100); MPV 9.6 fL (7.6-11.3); Monocytes % 3.5 % (3.3-12.3); RBC Red Blood Cell Count 5.33 M/uL (4.33-5.43)
--- NOTE | 2018-04-20 10:43 | RAD REPORT ---
EXAM DESCRIPTION: US - Renal Ultrasound-Complete - 04/20/2018 10:17 am CLINICAL HISTORY: acute renal failure Flank pain COMPARISON: No comparisons FINDINGS: Both kidneys are mildly echogenic. Small cortical renal cysts are present bilaterally. The right kidney measures 9.7 x 6.1 x 4.9 cm. No hydronephrosis, focal mass or perinephric fluid. The left kidney measures 10.9 x 5.4 x 4.5 cm. No hydronephrosis, focal mass or perinephric fluid. The urinary bladder is incompletely distended without gross abnormality seen. IMPRESSION: Mild echogenic kidneys bilaterally most compatible with underlying medical renal disease .
--- NOTE | 2018-04-20 11:07 | RAD REPORT ---
EXAM DESCRIPTION: RAD - Abdomen 1 View (KUB) - 04/20/2018 7:18 am CLINICAL HISTORY: R/O ILEUS Pain COMPARISON: No comparisons FINDINGS: Air-filled non-organized bowel loops are seen throughout the abdomen most compatible with adynamic ileus. Enteric tube is in the upper abdomen likely within stomach. No finding suspicious for pneumoperitoneum.
[2018-04-20 12:32] LABS: Albumin 3.8 g/dL (3.4-5.0); Bilirubin Total 0.8 mg/dL (0.2-1.0); Magnesium 2.1 mg/dL (1.8-2.4); Potassium 3.6 mmol/L (3.5-5.1); Troponin I 0.07 ng/mL (0.0-0.045)
--- NOTE | 2018-04-20 12:38 | P.PN ---
Subjective Date of Service: 04/20/18 Primary Care Provider: [facility] Chief Complaint: Metabolic acidosis; hyperkalemia; end-stage renal disease Subjective: Other (Patient reports nausea and vomiting this morning. Dialysis catheter placed this morning. Patient not able to tolerate dialysis due to hypotension. Patient also with ileus NG tube in place.) Physical Examination - Vital Signs Temperature: 97.8 F Blood Pressure: 99/81 Pulse: 120 Respirations: 31 Pulse Ox (%): 97 - Physical Exam General: Alert, In no apparent distress, Oriented x3, Cooperative HEENT: Atraumatic, Other (NG tube in place) Neck: Supple Respiratory: Clear to auscultation bilaterally, Normal air movement Cardiovascular: Normal pulses, Regular rate/rhythm Gastrointestinal: No tenderness, No masses, No rebound, No guarding Musculoskeletal: No erythema, No tenderness, No warmth Integumentary: No tenderness/swelling, No erythema, No warmth, No cyanosis Neurological: Normal speech, Normal strength at 5/5 x4 extr, Normal tone, Normal affect - Studies Laboratory Data (last 24 hrs) 04/19/18 12:25: Sodium 135 L, Potassium 6.5 H*, BUN 88 H, Creatinine 8.21 H*, Glucose 91, Magnesium 2.1, Total Bilirubin 0.4, AST 18, ALT 35, Alkaline Phosphatase 222 H 04/19/18 12:05: PT 13.4 H, INR 1.13 Medications List Reviewed: Yes Assessment & Plan Discharge Plan: Transfer Plan to discharge in: 24 Hours Physician Review Additional Text: Impression: Presyncope with hypotension, hyperkalemia and metabolic acidosis with noted acute on chronic renal failure requiring emergent dialysis UTI Nausea and vomiting secondary to ileus complicated with history of colectomy with prior colon cancer Diabetes mellitus type 2 Anemia of chronic disease COPD GERD Plan: Presyncope with hypotension, hyperkalemia and metabolic acidosis with noted acute on chronic renal failure requiring emergent dialysis: Notes reviewed. Renal ultrasound shows medical renal disease. Patient given IV fluids, bicarbonate, and vasopressor to maintain blood pressure. Dialysis catheter placed by surgery this a.m. for emergent dialysis. Patient was initiated on dialysis. Unfortunately he was not able to tolerate this. Dialysis was held. Patient was to be transferred to the [facility] but there was no bed availability. Patient awaiting transfer to [facility] for higher level of care. Patient will require continuous venovenous hemodialysis due to hypotension. Patient currently on dopamine. Nephrology plans to switch dopamine to Levophed due to hypotension. Patient has received medication for hypokalemia. Await further recommendations from nephrology. Will continue to assess closely. Await bed availability at [facility] as the patient has been accepted. Will discuss with nephrology. Will consult it sales consultant for ICU care. UTI: Urinalysis showed UTI. Will start Rocephin IV. Will obtain blood cultures. Nausea and vomiting secondary to ileus complicated with history of colectomy with prior colon cancer: NG tube in place. Will keep the patient NPO. Will continue monitor closely. Diabetes mellitus type 2: Will provide sliding scale. Will monitor closely. Anemia of chronic disease: Will monitor closely. COPD: Will provide medication for COPD. Will maintain sats above 90%. Will monitor closely. GERD: Will provide PPI. Time Spent Managing Pts Care (In Minutes): 55
[2018-04-20] MEDS ORDERED: NA CHLORIDE 0.9% 500 ML IV ONE (12:45)
[2018-04-20] MEDS ORDERED: CEFTRIAXONE/SWI 1gm 1 GM/10 ML SYR IV SCH (13:00)
[2018-04-20] MEDS ORDERED: NA CHLORIDE 0.9% 1,000 ML IV ONE (13:28)
[2018-04-20] MEDS ORDERED: Ringers Lactate 1,000 ML IV ONE (13:35)
--- NOTE | 2018-04-20 13:37 | CON ---
CARDIOLOGY CONSULT History Of Present Illness: Mr. De Luna is 72. He came to the hospital. He was seen at the [facility]. He was supposed to get some blood drawn or had some other kind of visit and he fainted. His bloo d pressure was low, so he was sent to the emergency room. There, he was found to have a creatinine o richard 8 and it seems he is in need of immediate hemodialysis. He is uremic. He is vomiting and throwi ng up. He is in syncope, hyperkalemic and had near collapse. I apparently saw the patient 4 years a go and recommended a cardiac cath, but it was not done. He wanted to have it done somewhere besides in this hospital, but I do not think he ever had it done. He has not had bypass surgery or stents. He seems to have underlying hypertension and end-stage renal disease. We do not seem to have a list of his outpatient therapies. Some of his blood sugars have been mildly elevated, but the highest is 154. Social History: The patient is a non-tobacco user. Physical Examination: General: He is 5 feet 9 inches, 144 pounds. HEENT: Unremarkable. Lungs: Clear. The lungs reveal decreased breath sounds at most of the lung diehl, especially lower . Heart: Regular rate and rhythm. No gallop. Abdomen: Soft. Extremities: Mild edema. Distal pulses palpable. Diagnostic Data: He has a troponin level of 0.2, that is the rapid troponin. The more reliable trop onin level is 0.02. His electrocardiogram shows sinus bradycardia, otherwise it is normal. I do not believe the patient is having an acute coronary syndrome. He has renal failure, uremia, hyp erkalemia, and multitude of metabolic abnormalities. Hemodialysis access catheter and hemodialysis t rock is the thing that will help him the most. I do not think we need to do a cardiac workup at this point. EVIE/SAMAN Voice ID: [id number] Report ID: [id number]
[2018-04-20] MEDS ORDERED: VANCOMYCIN 1GM/D5W 1 GM/200 ML BAG IVPB SCH (13:57)
--- NOTE | 2018-04-20 14:09 | CON ---
Date of Consultation: 04/20/2018 Reason For Consultation: Acute kidney injury, hyperkalemia, metabolic acidosis , need for hemodialysis. Brief History Of Present Illness: The patient is a 72-year-old gentleman who came to the hospital with a history of renal dysfunction , hypertension, diabetes, who had been having a steady decline in his overall function. He was at home and became lightheaded. He, as such, came to the emergency room, when he became lightheaded and had dizziness. He was found to be hypotensive with a systolic blood pressure in the 50s in the emergency room, and he had multiple electrolyte abnormalities with severe hyperkalemia in the 6 range and evidence of declining renal function. He has had decreased urine output. Past Medical History: Significant for glaucoma, hypertension, anemia, diabetes , COPD. Past Surgical History: Includes a right knee surgery, colectomy, and hernia repair. Allergies: NO KNOWN DRUG ALLERGIES. Family History: Noncontributory. Social History: Smoking, he had a former heavy smoking history. Denies alcohol or recreational drug use. Home Medications: Unavailable and the patient cannot recall them at this time. Review of Systems: A 10-point review of systems other than HPI, denies. Physical Examination: Vital Signs: At the time of my examination, his BMI is 21.3. His vital signs were blood pressure of 100/55, pulse is 112, respiratory rate 18, temperature 97.8. He is currently on dopamine drip. General: He is awake, alert, and oriented. Psychiatric: He answers questions appropriately but has poor insight to his medical history. HEENT: Otherwise, he is normocephalic. His sclerae were anicteric. His mucous membranes were somewhat dry. His oropharynx is clear. Chest: Normal expansion and excursion. Cardiovascular: Tachycardia during my examination. Abdomen: Tympanic, tender globally, no focal peritoneal signs at this time, but abdominal exam is concerning. He has a right femoral central line currently in place. Extremities: No clubbing, cyanosis, or edema. Skin: Warm and dry. Laboratory Data: He had a laboratory exam, which reveals a white blood count of 5.3, hemoglobin is 12.1, hematocrit 37.6, platelet count is 196. His PT 13.4 , INR 1.13. Sodium was 137, potassium 5.8, chloride 111, carbon dioxide 13, BUN 84, creatinine 7.3. His estimated GFR is 9, glucose is 97. His lactic acid is currently pending. Phos is currently pending. His magnesium was 2.1, total bilirubin 0.4 on admission, AST 18, ALT 35, alkaline phosphatase 222. His troponin was less than 0.2. Troponin I was less than 0.02 on 2 subsequent checks. ProBNP was 132. His TSH was 0.322. He had imaging performed which included chest x-ray officially read as hyperaerated lungs probably indicate COPD. No acute abnormality displayed. He had a head CT performed as well which was officially read as no acute intracranial abnormality. There is a clinical concern for CA, MRI would be recommended. Assessment And Plan: This is a 72-year-old male who comes in with acute kidney injury and hypotension. 1. Continue medical management. 2. I have explained the risks, benefits, and alternatives of placement of a temporary un-tunneled hemodialysis catheter, likely in the femoral vein. The patient understands the risks to include bleeding, infection, damage to surrounding tissues, need for further operation and procedures and agrees to proceed as indicated. All questions were answered. 3. CT abdomen to better evaluate for abnormal abdominal exam. SACHA/SAMAN Voice ID: [id number] Report ID: [id number] ZACKARY
--- NOTE | 2018-04-20 16:10 | P.DS ---
Admission Date: 04/19/18 Discharge Date: 04/20/18 Primary Care Provider: [facility] Disposition: TRANSFER TO [facility] Discharge Condition: GOOD Reason for Admission: Metabolic acidosis; hyperkalemia; end-stage renal disease Consultations: Nephrology-Dr. Mirza Surgery-Dr. Hernandez Procedures: CT head: COMPARISON: Ct Stroke Brain Wo Cont dated 10/02/2016 TECHNIQUE: All CT scans are performed using dose optimization technique as appropriate and may include automated exposure control or mA/KV adjustment according to patient size. FINDINGS: No intracranial hemorrhage, hydrocephalus or extra-axial fluid collection.Moderate generalized brain atrophy is present with moderate periventricular and deep white matter chronic microvascular ischemic changes.No areas of brain edema or evidence of midline shift. The paranasal sinuses and mastoids are clear. The calvarium is intact. IMPRESSION: No acute intracranial abnormality. If there is continued clinical concern for CVA, MR imaging of the brain would be recommended. Renal US: COMPARISON: No comparisons FINDINGS: Both kidneys are mildly echogenic. Small cortical renal cysts are present bilaterally. The right kidney measures 9.7 x 6.1 x 4.9 cm. No hydronephrosis, focal mass or perinephric fluid. The left kidney measures 10.9 x 5.4 x 4.5 cm. No hydronephrosis, focal mass or perinephric fluid. The urinary bladder is incompletely distended without gross abnormality seen. IMPRESSION: Mild echogenic kidneys bilaterally most compatible with underlying medical renal disease. CXR: COMPARISON: 2016 FINDINGS: The lungs appear clear of acute infiltrate. Calcified granulomas are present within the lungs. Lungs are hyperaerated. The heart is normal size IMPRESSION: Hyperaerated lungs probably indicate COPD. No acute abnormality is displayed KUB: COMPARISON: No comparisons FINDINGS: Air-filled non-organized bowel loops are seen throughout the abdomen most compatible with adynamic ileus. Enteric tube is in the upper abdomen likely within stomach. No finding suspicious for pneumoperitoneum. Surgery: Date: 04/20/18 09:42 Preoperative diagnosis: Acute Renal Failure Postoperative diagnosis: Acute Renal Failure Primary procedure: Placement of Temporary LEFT femoral vein hemodialysis catheter Secondary procedure: microintroducer used Anesthesia: local 1% lidocaine Estimated blood loss: <5cc Specimen: none Findings: dark, non-pulsatile blood returned Complications: None Implants: Temporary hemodialysis catheter Transferred to: ICU Condition: Serious Medical problem list: Presyncope with hypotension, hyperkalemia and metabolic acidosis with noted acute on chronic renal failure requiring emergent dialysis etiology unknown UTI Nausea and vomiting secondary to ileus complicated with history of colectomy with prior colon cancer Diabetes mellitus type 2 Anemia of chronic disease COPD GERD Brief History of Present Illness: 72-year-old male presented to emergency room after he was seen at the [facility] with dizziness. Patient found to be hypotensive. Patient was sent to the ER for further evaluation. Patient reports history of colectomy due to colon cancer about 90 days ago. He was recently discharge from a long- term acute care facility about 2 weeks ago. Hospital Course: Patient presented to the emergency room with hypotension, hyperkalemia and metabolic acidosis. Patient was also found to have acute on chronic renal failure. Etiology unknown. Patient may be dehydrated. Patient with recent history of colectomy secondary to colon cancer about 90 days ago. Patient seen and evaluated by surgery and nephrology. Patient was given IV fluids and placed on vasopressors. Temporary dialysis catheter placed. Patient was given a trial of dialysis but the patient could not tolerate this. Transfer to the [facility] was initiated in the emergency room but there was no bed availability. Transferred to [facility] for higher level of care with the requirement of continuous venovenous hemodialysis due to hypotension was arranged. Patient was accepted. Patient be transferred to [facility] to continue his care. Further workup can be addressed there. Patient appears to have UTI. Patient started on broad-spectrum IV antibiotic therapy by in nephrology. Blood cultures and urine cultures obtained. Patient with nausea and vomiting upon admission. NG tube was placed due to slight abdominal distention. Patient with history of colectomy and prior colon cancer. KUB shows ileus. This will need to be further monitored and managed closely. Will need to obtain previous information from long-term [facility] and prior hospitalization. Patient has type 2 diabetes. Patient will continue with sliding scale. Patient with anemia of chronic disease likely related to underlying colon cancer and renal disease. This can be further monitored closely. Patient with underlying COPD. Chest x-ray shows COPD pattern. Patient will continue with COPD medication. Patient with GERD. Patient will continue with PPI. Patient has been accepted to [facility]. Continued care will be provided. Vital Signs/Physical Exam: Temp Pulse Resp BP Pulse Ox 97.8 F 100 H 29 H 104/67 100 04/20/18 12:38 04/20/18 15:30 04/20/18 15:30 04/20/18 15:30 04/20/18 15:30 General: Alert, In no apparent distress, Oriented x3 HEENT: Atraumatic, Other (NG tube in place) Neck: Supple Respiratory: Clear to auscultation bilaterally, Normal air movement Cardiovascular: Normal pulses, Regular rate/rhythm Gastrointestinal: Hypoactive, Soft and benign, Non-distended, No masses, No rebound, No guarding Musculoskeletal: No erythema, No tenderness, No warmth Integumentary: No tenderness/swelling, No erythema, No warmth, No cyanosis Neurological: Normal speech, Normal strength at 5/5 x4 extr, Normal tone, Normal affect Laboratory Data at Discharge: WBC 8.1 K/uL (4.3-10.9) D 04/20/18 10:09 Hgb 12.6 g/dL (13.6-17.9) L 04/20/18 10:09 Hct 38.7 % (39.6-49.0) L 04/20/18 10:09 Plt Count 271 K/uL (152-406) D 04/20/18 10:09 PT 13.4 SECONDS (9.5-12.5) H 04/19/18 12:05 INR 1.13 04/19/18 12:05 Sodium 138 mmol/L (136-145) 04/20/18 10:09 Potassium 3.6 mmol/L (3.5-5.1) 04/20/18 10:09 BUN 88 mg/dL (7-18) H 04/20/18 10:09 Creatinine 7.40 mg/dL (0.55-1.3) H* 04/20/18 10:09 Glucose 331 mg/dL (74-106) H 04/20/18 10:09 Phosphorus 5.0 mg/dL (2.5-4.9) H 04/20/18 10:09 Magnesium 2.1 mg/dL (1.8-2.4) 04/20/18 10:09 Total Bilirubin 0.8 mg/dL (0.2-1.0) 04/20/18 10:09 AST 23 U/L (15-37) 04/20/18 10:09 ALT 32 U/L (12-78) 04/20/18 10:09 Alkaline Phosphatase 211 U/L (45-117) H 04/20/18 10:09 Troponin I 0.07 ng/mL (0.0-0.045) H 04/20/18 10:09 Triglycerides 191 mg/dL (<150) H 04/20/18 02:48 Cholesterol 149 mg/dL (<200) 04/20/18 02:48 HDL Cholesterol 28 mg/dL (40-60) L 04/20/18 02:48 Cholesterol/HDL Ratio 5.32 04/20/18 02:48 Lipase 111 U/L (73-393) 04/20/18 10:09 Home Medications: Atorvastatin Calcium [Lipitor] 80 mg PO BEDTIME 04/20/18 Cyanocobalamin (Vitamin B-12) [B-12] 1,000 mcg PO DAILY 04/20/18 Docusate Sodium 100 mg PO BID PRN 04/20/18 Ferrous Gluconate 324 mg PO DAILY 04/20/18 Lisinopril [Prinivil] 5 mg PO BID 04/20/18 Metformin HCl [Glucophage] 500 mg PO DAILY WITH BREAKFAST 04/20/18 Quetiapine Fumarate [Seroquel] 150 mg PO BEDTIME 04/20/18 Sertraline HCl 150 mg PO DAILY 04/20/18 Vancomycin HCl 125 mg PO Q48H 04/20/18 Patient Discharge Instructions: Patient be transferred to [facility] to continue care. Continue current medications at this time. Patient will likely require continuous venovenous hemodialysis due to unstable blood pressure. Further workup and management will continue. Diet: NPO Activity: Fall precautions Time spent managing pt's care (in minutes): 55
[2018-04-20 16:21] LABS: Arterial Blood Carboxyhemoglob 0.9 % (0-1.5); Blood Gas Oxyhemoglobin 88.4 % (94-97); Blood O2 Saturation 89.6 % (92-98.5)
[2018-04-20] MEDS ORDERED: PIPER/TAZO/NS 2.25gm 2.25 GM/50 ML BAG IVPB SCH (17:00)
--- NOTE | 2018-04-20 18:36 | RAD REPORT ---
EXAM DESCRIPTION: CT - Chest Abd Pelvis Wo Con - 04/20/2018 5:48 pm CLINICAL HISTORY: Chest and abdomen pain. r/o ileus COMPARISON: Abdomen 1 View (KUB) dated 04/20/2018; Chest Single View dated 04/19/2018 TECHNIQUE: Noncontrast study was performed. All CT scans are performed using dose optimization technique as appropriate and may include automated exposure control or mA/KV adjustment according to patient size. FINDINGS: The lungs are emphysematous.No pleural or pericardial effusion.NG tube descends into the s tomach is decompressed. A small hiatal hernia is present. Air is present within the portal venous system of the liver anteriorly. Pneumatosis is seen involving several loops of bowel in left colon. There is gaseous distention of the large and small bowel prese nt. Small amount of free fluid is seen in the abdomen. No free air seen in the abdomen. No intra-abdomina l abscess. 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 IMPRESSION: Findings are most compatible with ischemic bowel with several bowel loops in the left ab domen demonstrating pneumatosis and portal venous air present in the liver. Findings were discussed with Dr. Mirza at 6:30 p.m. 04/20/2018 by telephone.
--- NOTE | 2018-04-20 19:22 | CON ---
Date of Consultation: 04/20/2018 Additional Consulting Physician: Lai Garcia DO. Reason For Consultation: Elevated BUN and creatinine, fluid management, acidosis. History Of Present Illness: This is a 72-year-old gentleman with significant past medical history of hypertension, diabetes complicated with neuropathy, hyperlipidemia. The patient, according to him nayeli lagos was admitted to the hospital and he stayed for almost 90 days and release 2 weeks ago. According t o him, he had a colostomy that been revised. The patient came to the our hospital after visiting his primary when he found to have low blood pressure. For that reason deferred to the ER. In the ER, f ound to have hypotension with abdominal distention and ileus with severe acidosis and hyperkalemia, f or that reason we have been consulted. According to the patient, the patient known that he has worse serenity in his kidney function lately and according to him, they told him he may need dialysis. Reviewi ng the record, the patient's creatinine back in 2017 was 1.5. Also, he usually hovering with hemoglobin of 9, on admission patient's hemoglobin was 13. The patient denied taking any nonsteroidal, no IV contrast. The patient mentioned that during the hospitalization they tried to place a Sherwood catheter, but they could not. Past Medical History: Include: 1.Hypertension. 2.Diabetes. 3.Hyperlipidemia. 4.Chronic kidney disease. 5.COPD. Family History: Positive for hypertension and coronary artery disease. Social History: Ex-smoker. Denied alcohol. Denied drug abuse. Past Surgical History: Include: 1.Colectomy. 2.Knee surgery. 3.Hernia repair. 4.Temporary hemodialysis catheter. Review of Systems: Head and Neck: No red eye. No ear pain. GI: Has nausea. Has abdominal pain. : No polyuria. No dysuria. No hematuria. 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 Respiratory: No shortness of breath. Cardiovascular: No chest pain. Neuro: Alert, nonfocal. No tremor. Physical Examination: Vital Signs: When I saw the patient blood pressure 90/75, pulse of 110, afebrile. Chest: Clear to auscultation. Heart: S1 and S2. Regular. Abdomen: Distended. Dullness on the suprapubic area. Extremities: No edema. Laboratory Data: Lab back in 2017; H and H 9.1/32 and at that time his creatinine was 1.5 with GFR o f 54. On this admission; sodium 135, potassium 6.5, bicarb 13, BUN 88, creatinine 8.2, calcium 9.3. LFT within normal limit. Chest x-ray, no congestion. TSH 0.3. Latest lab data for the patient; sodium 138, potassium 3.6, bicarb 10, chloride 108, BUN 88, creatini ne 7.4 trending down. The patient had oliguria. Calcium 10.2, phosphorus 5. TSH 0.3. Urinalysis; specific gravity of 1.020, negative for infection. Protein-creatinine 0.2. Current Medications: The patient on its include: 1.Aspirin. 2.Ceftriaxone. 3.Dopamine. 4.Heparin. 5.Tylenol. 6.Bicarb drip. 7.Zofran. Allergies: NO KNOWN DRUG ALLERGIES. Assessment And Plan: 1.Acute kidney injury on chronic kidney disease, possible toxic acute tubular necrosis, poor perfusi on, to rule out any obstructive uropathy. I am going to go ahead and start the patient on aggressive hydration. We will bolus the patient with 2 L right now and we will monitor the patient the patient . Then, we will continue on the sodium bicarb. I going to hold on dialysis for the time being. The patient has not tolerating it because of the drop in the blood pressure and tachycardia. 2.Severe metabolic acidosis, non-anion gap metabolic acidosis with possible secondary to sepsis. I am going to go ahead and send for ABG. Continue bicarb drip. We will start aggressive hydration for the patient and will follow up. I am going to expand his antibiotic. 3.Sepsis/septic shock. We will start and cover for the patient, add Zosyn and I am going to dose th e patient with a single dose of vancomycin and we will follow up. 4.Hyperkalemia, currently resolved. 5.Urine retention/abdominal distention. We will consult Surgery. SHANIKA/SAMAN Voice ID: [id number] Report ID: [id number]
--- NOTE | 2018-04-20 20:37 | OP ---
Date of Procedure: 04/20/2018 Surgeon: Casper Hernandez MD, Preoperative Diagnosis: Acute renal failure. Postoperative Diagnosis: Acute renal failure. Procedure Performed: Placement of temporary left femoral vein hemodialysis catheter using micro intr oducer set. Anesthesia: Local 1% lidocaine. Estimated Blood Loss: Less than 5 cc. Specimen: None. Findings: Dark nonpulsatile blood return. Complications: None. Implants: Temporary hemodialysis catheter. Disposition: Patient remained in ICU in serious condition. Procedure In Detail: After informed was obtained, patient was prepped and draped in the usual steril e fashion. After adequate anesthesia was achieved with 1% lidocaine in the region of the left groin, using anatomic landmarks, a microintroducer puncture set was used to cannulate the left femoral vein on the first attempt. Dark red nonpulsatile blood was returned. Micro wire was then advanced and t he needle was removed. Using Seldinger technique, a small stefano incision was made and the introducer sheath was introduced through the femoral vein using over wire technique. The wire out was called at this point. The inner cannula was then removed and dark red nonpulsatile blood was once again retur tobias. I advanced the standard hemodialysis catheter wire through the introducer sheath and removed th e sheath. I then sequentially dilated up using Seldinger technique over the wire, the tract of the f emoral vein and ultimately placed the catheter through this using Seldinger technique. A wire out wa s called once again. Dark red nonpulsatile blood was returned from both ports and easily flushed and withdrew. The ports were then flushed until completely clear with saline and packed with heparin mehta per flush 2 cc per port. I then secured the catheter to the patient using the included 2-0 nylon sut ure and cleansed the area once again with ChloraPrep, capped the catheter and placed sterile dressing over top. Patient tolerated the procedure well without evidence of complication, remained in the IC U throughout the procedure in serious condition. All counts were correct at the end of the case. SACHA/SAMAN Voice ID: [id number] Report ID: [id number]
[2018-04-21] MEDS ORDERED: CEFTRIAXONE 1 GM/NS 50 ML 1 GM/50 ML BAG IV SCH (09:00)
[2018-04-23 15:17] LABS: HIV 1/2 Antibody Diff Not indicated.; HIV AG/AB 4TH GEN Non-reactive (Non-reactive)
[2018-04-24 04:45] LABS: HBsAG Nonreactive (Nonreactive); Hepatitis A IgM Antibody Nonreactive
== END 2018-04-20 19:45 | disposition short-term general hospital (02) | DRG 683 ==
LOC: ER 10:47 → ERHOLD 18:10 → 3RD-ICU 21:50
PROVIDERS: ADMIT Family Medicine; ATTEND Family Medicine
PROC: 5A1D70Z Performance of Urinary Filtration, Intermittent, Less than 6 Hours Per Day (ICD-10-PCS; principal; 2018-04-20)
PROC: 06HN33Z Insertion of Infusion Device into Left Femoral Vein, Percutaneous Approach (ICD-10-PCS; 2018-04-20)
PROC: 0D9670Z Drainage of Stomach with Drainage Device, Via Natural or Artificial Opening (ICD-10-PCS; 2018-04-20)
DX: N17.9 Acute kidney failure, unspecified (principal); I12.0 Hypertensive chronic kidney disease with stage 5 chronic kidney disease or end stage renal disease; N39.0 Urinary tract infection, site not specified; E87.2 Acidosis; K56.7 Ileus, unspecified; E11.22 Type 2 diabetes mellitus with diabetic chronic kidney disease; N18.6 End stage renal disease; Z85.038 Personal history of other malignant neoplasm of large intestine; K21.9 Gastro-esophageal reflux disease without esophagitis; D63.1 Anemia in chronic kidney disease; E11.40 Type 2 diabetes mellitus with diabetic neuropathy, unspecified; E11.65 Type 2 diabetes mellitus with hyperglycemia; E78.5 Hyperlipidemia, unspecified; J44.9 Chronic obstructive pulmonary disease, unspecified; Z87.891 Personal history of nicotine dependence; I95.9 Hypotension, unspecified; R33.9 Retention of urine, unspecified
CPT/HCPCS: 36415; 70450; 71045; 71250; 74018; 74176; 76770; 80048; 80053; 80061; 80074; 80076; 81001; 82043; 82550; 82553; 82570; 82805; 82962; 83605; 83690; 83735; 83880; 84100; 84132; 84439; 84443; 84484; 85025; 85610; 86706; 87040; 87086; 87088; 87389; 90935; 93005; 94640; 96361; 96365; 96375; 99285; J0461; J0610; J0696; J1265; J1644; J2405; J7030; J7060; J7605